=== PATIENT | male | born 2005 | race Caucasian/White ===

== ENCOUNTER 2024-05-12 13:30 | Emergency (ER) | payer OTHER, SELFPAY ==
[2024-05-12 13:36] VITALS: BP 159/61; PULSE 85; RESP 24; TEMP 37.4; O2SAT 97; BMI 34.8
--- NOTE | 2024-05-12 13:48 | ED_ITS ---
HPI - Skin/Abscess/Foreign Bdy <Radha Muniz PA-C - Last Filed: 05/12/24 14:56> General Chief complaint: Skin/Abscess/Foreign Body Stated complaint: boiling water on tummy Time Seen by Provider: 05/12/24 13:48 Source: patient Mode of arrival: Ambulatory Limitations: no limitations History of Present Illness HPI narrative: 18-year-old male presents for a thermal burn that occurred about 1-1/2 hours prior to arrival. He was in his kitchen boiling some hot water to make some tea when he inadvertently spilled it on his abdomen. He immediately took off his clothing ran to the shower and took a cool shower. He did not use any soap however. His main complaint is pain, he took 2 ibuprofen as well with minimal relief. He is unsure of when his last tetanus was but he did have his childhood immunizations. History is only significant for using Adderall and sertraline. He lives locally. No other injuries. All other systems reviewed and are negative. Related Data Allergies Allergy/AdvReac Type Severity Reaction Status Date / Time No Known Drug Allergies Allergy Verified 05/12/24 13:36 Review of Systems <Radha Muniz PA-C - Last Filed: 05/12/24 14:56> Review of Systems Narrative: All other systems reviewed and are negative. Patient History <Radha Muniz PA-C - Last Filed: 05/12/24 14:56> Social History Smoking Status: Never smoker Smoking Status: Never smoker alcohol intake frequency: holidays/special occasions only Substance Use Type: does not use Exam <Radha Muniz PA-C - Last Filed: 05/12/24 14:56> Initial Vital Signs Initial Vital Signs: Vital Signs Temperature 99.4 F 05/12/24 13:36 Pulse Rate 85 05/12/24 13:36 Respiratory Rate 24 05/12/24 13:36 Blood Pressure 159/61 H 05/12/24 13:36 Pulse Oximetry 97 05/12/24 13:36 Oxygen Delivery Method Room Air 05/12/24 13:36 Vital signs reviewed and are normal except for elevated systolic. Const Other: Ambulatory, conversant, no obvious distress but uncomfortable. Chest Other: . Resp Effort & Inspection: normal respiratory effort and able to speak in complete sentences Auscultation: clear to auscultation bilaterally Cardio Rate: regular rate Rhythm: regular rhythm GI Palpation: soft and no hepatosplenomegaly Auscultation: normal bowel sounds Other: Anterior trunk overlying the abdomen just below the ribcage there is a 9 x 9-1/2 erythematous region consistent with a first-degree burn. Within the midline there is a 3 in x 1 in non intact area, superficial, consistent with a second- degree partial-thickness burn, no blisters, no involvement of the umbilicus. He is tender in this area of course. Normal hair pattern Back/Spine/Pelvis Other: Clear posterior trunk. Skin Other: As noted in the abdomen section. Using the modified [place]ry Chart: total body surface area of first degree burn approximately 5%, 2nd degree superficial, partial thickness <1%. <Mirela Ceballos DO - Last Filed: 05/12/24 17:03> Initial Vital Signs Initial Vital Signs: Vital Signs Temperature 99.4 F 05/12/24 13:36 Pulse Rate 85 05/12/24 13:36 Respiratory Rate 24 05/12/24 13:36 Blood Pressure 159/61 H 05/12/24 13:36 Pulse Oximetry 97 05/12/24 13:36 Oxygen Delivery Method Room Air 05/12/24 13:36 Course <Radha Muniz PA-C - Last Filed: 05/12/24 14:56> Course Course Narrative: Continuous cooling was performed with moistened towels, the area was cleansed with soap and water. His tetanus was updated. Wound care for the small superficial partial thickness was provided, thin layer of bacitracin was applied with a nonadherent dressing. Orders Ordered: Discontinued Medications Bacitracin (Bacitracin Oint 0.9 Gm Pckt) 1 applic TOP NOW ONE Stop: 05/12/24 14:07 Last Admin: 05/12/24 14:12 Dose: 1 applic Documented By: ROWDY Diphtheria/Tetanus/Acell Pertussis (Tet,Diph,Pertuss(Acell),Vac/Pf 0.5 Ml Syringe) 0.5 ml IM .ONCE ONE Stop: 05/12/24 13:57 Last Admin: 05/12/24 14:07 Dose: 0.5 ml Documented By: ROWDY Vital Signs Vital signs: Vital Signs - 8 hr 12/01/24 13:36 05/12/24 14:58 Temperature 99.4 F Pulse Rate 85 Respiratory Rate 24 19 Blood Pressure 159/61 H Pulse Oximetry 97 Oxygen Delivery Method Room Air <Mirela Ceballos DO - Last Filed: 05/12/24 17:03> Orders Ordered: Discontinued Medications Bacitracin (Bacitracin Oint 0.9 Gm Pckt) 1 applic TOP NOW ONE Stop: 05/12/24 14:07 Last Admin: 05/12/24 14:12 Dose: 1 applic Documented By: ROWDY Diphtheria/Tetanus/Acell Pertussis (Tet,Diph,Pertuss(Acell),Vac/Pf 0.5 Ml Syringe) 0.5 ml IM .ONCE ONE Stop: 05/12/24 13:57 Last Admin: 05/12/24 14:07 Dose: 0.5 ml Documented By: ROWDY Vital Signs Vital signs: Vital Signs - 8 hr 05/12/24 13:36 05/12/24 14:58 Temperature 99.4 F Pulse Rate 85 Respiratory Rate 24 19 Blood Pressure 159/61 H Pulse Oximetry 97 Oxygen Delivery Method Room Air MDM - Skin/Abscess/Foreign Bdy <Radha Muniz PA-C - Last Filed: 05/12/24 14:56> Medical Records Medical records narrative: No medical records available within our system. MDM Narrative Medical decision making narrative: Primarily first-degree burn involving the abdominal wall, no involvement of the umbilicus. There was a small 3 in x 1 in superficial partial-thickness second- degree, wound care was provided. His tetanus was updated. We discussed use of Tylenol and ibuprofen as needed for pain, continued cooling, avoiding heat sources or re-injury. I have given him a note releasing him from work for the next couple of days, he will monitor for any signs of infection, increased swelling, redness, drainage, continued soap and water cleanse daily, can cover to avoid contact with his clothing, avoid added friction, seek medical attention if anything worsens or changes. Again keep activity light avoid exercise or perspiration. Should see gradual resolution in the next couple of weeks with pain improving over the next couple of days. Discharge Plan Departure Patient Disposition: Home Clinical Impression: First degree burn of abdominal wall Qualifiers: Encounter type: initial encounter Qualified Code(s): T21.12XA - Burn of first degree of abdominal wall, initial encounter Second degree burn of abdomen Qualifiers: Encounter type: initial encounter Qualified Code(s): T21.22XA - Burn of second degree of abdominal wall, initial encounter Instructions: DI for [place] Activity Restrictions/Additional Instructions: Keep her activity light, avoid heat sources, continued soap and water cleanse daily, you may keep the area covered and dry, over the moist area you can apply a topical bacitracin or antibiotic if you feel it helps. Monitor for signs of infection this includes increased redness, swelling, drainage, odor, pain, fever. Pain can be managed with Tylenol [id number] and or your ibuprofen. Cool compresses can be applied as often as you want, avoid ice. Moisturizing the area with a good lotion will help prevent the flaking and dryness that occurs while it heals, aloe vera is another good option some products do contain some topical numbing medicine as well such as lidocaine, use sparingly. Seek medical attention if anything worsens or you develop any new worrisome symptoms. Anticipate gradual improvement over the next couple of weeks. Stand Alone Forms: Patient Portal/API/Survey, Work Release Note ED Sign-out <Mirela Ceballos DO - Last Filed: 05/12/24 17:03> Cosign ED Attending Cosignature Attestation: I was immediately available in the department for consultation.
[2024-05-12] MEDS: TET,DIPH,PERTUSS(ACELL),VAC/PF 0.5 ML SYRINGE IM (14:07)
[2024-05-12] MEDS: BACITRACIN OINT 0.9 GM PCKT 1 APPLIC TOP (14:12)
--- NOTE | 2024-05-12 14:56 | PC.NURSE ---
Addendum entered by Adamaris Lin R.N. 05/12/24 14:57: No drainage noted. No involvement of face or genitals. Pain improves with cool, clean washcloths Original Note: Pt states he was making big batches of tea when the hot water spilled on his abdomen. Approx 6% of TBSA of 1st degree burn noted.
[2024-05-12 14:58] VITALS: RESP 19
== END 2024-05-12 14:58 | disposition home or self-care (01) ==
PROVIDERS: Emergency Provider Physician Assistant Medical
DX: T21.22XA Burn of second degree of abdominal wall, initial encounter (principal); T21.12XA Burn of first degree of abdominal wall, initial encounter; Z23 Encounter for immunization; X12.XXXA Contact with other hot fluids, initial encounter; Y93.89 Activity, other specified; Y92.000 Kitchen of unspecified non-institutional (private) residence as the place of occurrence of the external cause
CPT/HCPCS: 90471; 99283; 99284; 90715